=== PATIENT | male | born 1980 | race Caucasian/White ===

== ENCOUNTER 2025-03-07 08:04 | Day surgery (SDC) | payer BC, SELFPAY ==
[2025-03-07] VITALS (12 sets, daily range): BP systolic 109–139; BP diastolic 60–87; PULSE 62–70; RESP 16–18; TEMP 36.1–37.2; O2SAT 95–99; BMI 41.5
[2025-03-07] MEDS: LACTATED RINGERS 1000ML 1,000 ML 100 ML IV (08:44)
--- NOTE | 2025-03-07 09:45 | P.PNANES_ITS ---
[facility] Disclaimer: The information contained in this section may have been updated after the patient was seen, as this information can be updated by other users. Medical History No significant past medical history Surgical History History of surgery History of hernia repair Family History Other No significant family history Social History Smoking Status: Never smoker alcohol intake: never substance use type: unknown current occupational status: employed and other Travel in the last 8 weeks?: None [facility] Anesthesia Checklist Patient Identification Patient Identification: Arm Band and Verbal (Name & ) Structural Data Admitted From: Home Planned Operative Procedure/s: Ankle I&D Consent for Planned Operative Procedure(s) Verified: Yes Verified Documents: Surgical Consent and History and Physical NPO Status Verified Time NPO: 00:00 Additional verifications Anesthesia Reactions: No Hx Blood Transfusions: No Blood Transfusion Reaction: No Airway Assessment Mallampati Score:: Class II Dentition: Good Dentition Neurological Assessment Level of Consciousness: Awake, Alert and Appropriate Hx Seizures: No Numbness or tingling in extremities: No Anesthesia Plan Anesthesia Risk discussed: Yes Anesthesia Plan: Verified ASA Class: II Anesthesia Type: General
[2025-03-07] MEDS: BUPIVACAINE 0.25% 30ML VIAL 75 MG (10:14)
[2025-03-07] MEDS: LIDOCAINE 1% W/EPI 1:100,000 20ML VIAL 20 ML (10:14)
--- NOTE | 2025-03-07 10:50 | EXP.ANES.I ---
[facility] Anesthesia Record Part I Anesthesia Record I Intake, IV Amount: 800 Hydration: Adequate Estimated blood loss (mL): 20 Urine output (mL): 0 Blood Pressure: 133/83 SaO2: 96 Pulse Rate: 65 Airway Patency: Patent Respiratory Rate: 18 Temperature: 98.8 F Patient is:: Awake and Stable Stable to PACU at:: 10:58
--- NOTE | 2025-03-07 11:02 | P.OP_ITS ---
Date of procedure: 03/07/25 Pre-op Diagnosis:: Left ankle hematoma Post-op Diagnosis:: Same Procedure performed:: Incision and drainage and evacuation of large hematoma 5 cm x 3 cm left ankle Surgeon:: Saad Torres DO Meter Changes Records Clerk(s):: Jamar ARIZMENDI PERSON INVESTIGATOR:: Merary Li Anesthesia: GETA Estimated blood loss (mL): 20 Clinical Note:: 44-year-old male with a ankle sprain several weeks ago suffered a large hematoma to the ankle was causing significant pain and swelling difficulty with hanging the ankle down. Initially seen evaluated with very slight improvement over a week. He was immobilized afterwards and still not resolved. Significant pain at the area of hematoma and significant swelling was present so indicated for incision and drainage and evacuation of large hematoma. Operative findings:: See dictation Operative note:: Patient identified preoperatively. Left ankle marked with yes and my initials. Transported operative suite placed upon operating bed. General anesthesia administered airway secured. Left lower extremity prepped and draped in normal sterile fashion. Once prepped and draped final operative timeout performed to identify proper patient procedure and extremity. Everyone involved in the case agree. There is no counter indication beginning. Did receive preoperative antibiotics. Marking pen was used to make planned incision over the large hematoma left ankle that measured 5 cm x 3 cm. Tourniquet was placed but not inflated. Lidocaine with epinephrine was infiltrated around the incision site 15 blade was used to make an incision over the hematoma hemostat was placed large return of thick and serosanguineous tissue was suctioned cultures were taken. Irrigation of this area was completed hemostat was placed to make sure there is no loculations and mature blood products for hematoma left behind. Copious irrigation repeated until clear. Significant amount of decompression was achieved. 3-0 nylon stitch in simple fashion were placed to close the wound sterile dressing placed soft roll well-padded posterior splint placed patient waken anesthesia taken recovery stable condition Condition: stable Disposition: PACU Complications:: None apparent
[2025-03-07] MEDS: HYDROMORPHONE 2MG/ML SYRINGE 0.5 MG IV (11:10)
--- NOTE | 2025-03-07 11:43 | SUR.PHASEI ---
1133- Patient VSS. Patient states that pain is better after medication given and dressing was redressed per Dr. Torres and CLEMENTE Stevens. Dr. Torres would like patient to have block done. per Darrel Li CRNA patient ok to go to post op to wait to have block done. 1134- patient transported via stretcher to post op. Report given to Ching Amor RN at bedside. Polar pack at pt bedside.
--- NOTE | 2025-03-07 14:24 | P.PNANES_ITS ---
[facility] Anesthesia Record Part II Anesthesia Record Part II Discharge Time: 12:34 Destination: Surgical Day Care (OP Surgery) PACU nurse assessment reviewed?: Yes Patient Condition:: Good Anesthesia Complications:: None Swallowing reflex intact?: Yes Airway Patency: Patent Cyanosis?: No Blood Pressure: 109/62 SaO2: 96 Respiratory Rate: 18 Pulse Rate: 70 Temperature: 97.2 F Mental Status: Alert & Oriented Pain level:: 0 Nausea and/or vomitting:: None Intake, IV Amount: 0 Hydration: Adequate
--- NOTE | 2025-03-07 15:08 | PC.NURSE ---
popliteal nerve block to LLE started at 1202 then ended at 1206
== END 2025-03-07 12:34 | disposition home or self-care (01) ==
PROVIDERS: PCP Family Medicine; Visit Provider Orthopaedic Surgery
PROC: (CPT 10140; principal; 2025-03-07 10:30)
DX: S90.02XA Contusion of left ankle, initial encounter (principal); X50.1XXA Overexertion from prolonged static or awkward postures, initial encounter
CPT/HCPCS: 10140; 87070; 87077; 87186; 87205; 96374; J0665; J0690; J1100; J1171; J1200; J1885; J2003; J2004; J2250; J2405; J2704; J3010; J7120